=== PATIENT | male | born 1950 | race Caucasian/White ===

== ENCOUNTER → 2017-05-19 | Day surgery (SDC) | payer OTHER ==
[2017-05-16 12:03] VITALS: BMI 34.9
[~2017-05-19] MED LIST: ALPRAZolam 0.25 MG TAB PO PRN; ALPRAZolam 0.5 MG TAB PO PRN; ASPIRIN 325 MG TAB PO STA; NITROGLYCERIN SL TABS 0.4 MG TAB SUBLINGUAL PRN; SODIUM CHLORIDE 0.9% 1,000 ML in EMPTY BAG 1 BAG IV ONE
[2017-05-19 09:43] VITALS: BP 143/82; PULSE 92; RESP 16; TEMP 98.2
== END ==
LOC: CATHCVL 09:13
PROVIDERS: ATTEND Internal Medicine Interventional Cardiology
DX: B20 Human immunodeficiency virus [HIV] disease (principal)

== ENCOUNTER → 2023-03-31 | Outpatient (CLI) | payer MEDICARE, OTHER ==
[2023-03-31 10:42] LABS: ALT 20 U/L (4-49); AST 34 U/L (17-59); African American GFR (CKD) >90 (>60 ml/min/1.73 sqM); Albumin 3.9 g/dL (3.5-5.0); Anion Gap 11 mmol/L; Blood Urea Nitrogen 16 mg/dL (9-20); Carbon Dioxide 27 mmol/L (22-30); Chloride 99 mmol/L (98-107); Glucose 253 mg/dL (74-99); Non-African American GFR(CKD) >90 (>60 ml/min/1.73 sqM); Phosphorus 3.9 mg/dL (2.5-4.5); Potassium 4.4 mmol/L (3.5-5.1); Sodium 137 mmol/L (137-145)
[2023-03-31 10:53] LABS: NT-Pro-B-Type Natriuretic Pept 449 pg/mL
[2023-03-31 16:57] LABS: HCT 39.2 % (39.6-50.0); HGB 11.7 d/dL (13.0-17.0); MCH 22.8 pg (27.0-32.0); MCHC 29.8 d/dL (32.0-37.0); MCV 76.4 FL (80.0-97.0); NRBC Per 100 WBC 0 X 10*3/uL (0.00-0.01); Platelet Count 127 X 10*3/uL (140-440); RBC 5.13 X 10*6/uL (4.40-5.60); RDW 18.8 % (11.5-14.5); WBC 4.27 X 10*3/uL (4.50-10.00)
== END | disposition home or self-care (01) ==
LOC: LABWHC1 09:12
PROVIDERS: ATTEND Internal Medicine
DX: I50.9 Heart failure, unspecified (principal); K72.90 Hepatic failure, unspecified without coma; R06.02 Shortness of breath
CPT/HCPCS: 36415; 80069; 82247; 83880; 84450; 84460; 85027

== ENCOUNTER 2023-04-03 09:18 | Day surgery (SDC) | payer MEDICARE, OTHER ==
[~2023-04-03 09:18] MED LIST changes: +ATORVASTATIN 80 MG TAB PO STA; +HEPARIN SODIUM,PORCINE (1 ML) 2,500 UNIT in SODIUM CHLORIDE 0.9% 250 ML IRRIGATION PRN; +HEPARIN SODIUM,PORCINE 10,000 UNIT in SODIUM CHLORIDE 0.9% 1,000 ML IRRIGATION PRN; -SODIUM CHLORIDE 0.9% 1,000 ML in EMPTY BAG 1 BAG IV ONE; +SODIUM CHLORIDE 0.9% 1,000 ML in EMPTY BAG 1 BAG IV SCH
[2023-04-03 09:46] LABS: Glucose,Whole Blood 146 mg/dL (70-110)
[2023-04-03 09:49] VITALS: RESP 18
[2023-04-03] MEDS: BENZOCAINE SPRAY 1 CAN MUCOUS MEM ONE ×2 (10:30→10:37)
[2023-04-03] MEDS ORDERED: HEPARIN SODIUM 1,000 UN/ML (10ML VL) ONE (10:33)
[2023-04-03] MEDS ORDERED: VERAPAMIL 2.5 MG/ML 2 ML AMP ONE (10:33)
[2023-04-03] MEDS ORDERED: fentaNYL (PF) 50 MCG/ML 2 ML AMP ONE (10:33)
[2023-04-03] MEDS ORDERED: LIDOCAINE 1% INJ 10MG/ML (20 ML MDV) ONE (10:33)
[2023-04-03] MEDS: fentaNYL (PF) 50 MCG/1 ML VIAL IVP ONE ×2 (10:37→10:39)
[2023-04-03] MEDS ORDERED: MIDAZOLAM 2 MG/2 ML VIAL IVP ONE (10:37)
[2023-04-03] MEDS ORDERED: IV FLUID CONTINUATION 1,000 ML IV ONE (10:39)
[2023-04-03] MEDS: MIDAZOLAM 2 MG/2 ML VIAL IVP ONE ×3 (10:39→10:48)
[2023-04-03] MEDS ORDERED: LIDOCAINE 1% INJ 10MG/ML (20 ML MDV) SQ ONE (11:03)
[2023-04-03] MEDS ORDERED: VERAPAMIL SYRINGE (5 MG/10 ML) INTRAARTER ONE (11:05)
[2023-04-03] MEDS ORDERED: HEPARIN SODIUM 1,000 UN/ML (10ML VL) IV ONE (11:28)
[2023-04-03 11:36] LABS: O2 Sat Blood Gas 59.6 %
[2023-04-03 11:38] LABS: O2 Sat Blood Gas 54.2 %
[2023-04-03 11:40] LABS: O2 Sat Blood Gas 65.6 %
[2023-04-03 11:41] LABS: O2 Sat Blood Gas 60.6 %
[2023-04-03 11:42] LABS: O2 Sat Blood Gas 54.1 %
[2023-04-03] MEDS ORDERED: IOPAMIDOL-370 100ML BTL INJ ONE ×3 (11:46)
[2023-04-03 11:48] LABS: O2 Sat Blood Gas 83.3 %
[2023-04-03] MEDS ORDERED: MORPHINE SULFATE ER 30 MG TABLET PO STA (14:05)
[2023-04-03 15:45] VITALS: BP 140/84; PULSE 64
--- NOTE | 2023-04-03 22:23 | P.CARDCATH ---
Description of Procedure: PROCEDURES PERFORMED: Left and right heart catheterization, bilateral coronary angiography, ultrasound guided access INDICATION: Pulmonary hypertension, increasing dyspnea on exertion concerning for unstable angina, systolic murmur concerning for shunt CONSENT:I have discussed the risks, benefits and alternative therapies for the a jace-mentioned procedure and for both sedation/analgesia as well as necessary blood product administration, if indicated, as they pertain to this patient. The patient has indicated understanding and acceptance of the risks and procedures discussed. PROCEDURE: After the risks, benefits and alternatives of the above mentioned procedure explained in detail with the patient, informed consent was obtained. Patient was taken to the catheterization lab and prepped and draped in usual fashion. Ultrasound guidance was used to assess for arterial access. 1% lidocaine was used to anesthetize the right radial artery and right brachial area. A 6-Scottish sheath was placed in the right radial artery and right brachial vein using modified Seldinger technique and ultrasound guidance. A 6Fr Maple Yonny catheter was inserted into the RA, RV, PA, right and left PA and PCWP positions and pressure and oxygen saturation were performed. Thermodilution was performed. The Maple Yonny catheter was then removed. Left coronary angiography was performed with a 5-Scottish JL 3.5 catheter and right coronary angiography was performed with a 5-Scottish JR5 catheter in various views. A 5-Scottish FR5 catheter was inserted into the left ventricle and pressure measurements were obtained. There was concern of turbulent blood flow in the pulmonary artery and murmur with possible PDA and therefore descending aortogram was performed which did not show any significant shunt. The right radial sheath was removed and a TR band was placed and the right brachial sheath was removed and pressure held with hemostasis achieved. The patient tolerated the procedure well. Patient was transported back to the post catheterization holding area in stable condition. Conscious Sedation: Patient was monitored under the direct supervision of myself for conscious sedation using Versed and fentanyl for a total duration of 51 minutes HEMODYNAMICS: Aorta: 129/59 LV: 116/7, LVEDP 14 PCWP: 15 PA: 77/35 RV: 86/7 RA: 25/18 Right PA oxygen saturation: 60.6% Left PA oxygen saturation: 65.6% Main PA oxygen saturation: 54.1% RV oxygen saturation: 54.2% RA oxygen saturation: 59.6% CO by CALVIN: 9.3 L/min CI by CALVIN: 4.2 L/min/m2 CO by thermodilution: 7.26L/min CI by thermodilution: 3.3 L/min/m2 SELECTIVE CORONARY ARTERIOGRAPHY: LEFT MAIN: The left main is a large caliber vessel which bifurcates into the LAD and circumflex. There is no significant stenosis. LEFT ANTERIOR DESCENDING CORONARY ARTERY: LAD is a large caliber vessel which stops short of the apex. There is no significant stenosis. LEFT CIRCUMFLEX CORONARY ARTERY: Left circumflex is a moderate caliber vessel without significant stenosis. RIGHT CORONARY ARTERY: The right coronary artery is a large caliber vessel which gives off a PDA and PLV branch and is the dominant vessel. There is no significant stenosis. The PDA supplies the apex. Descending aortic angiogram: No stenosis, no PDA noted, no aneurysm. FINAL IMPRESSION: 1. Normal coronary arteries 2. Normal left sided filling pressures 3. Precapillary pulmonary hypertension 4. Oxygen saturation step up from RV/main PA to left pumonary artery consistent with AV shunt 5. Significant systolic murmur not explained by valvular disease concerning for AV shunt 6. No obvious PDA or shunt from descending aorta on aortogram PLAN: 1. Aggressive risk factor modification per most recent ACC/AHA guidelines. 2. Obtain prior CT chest images from [facility] to visualize any shunt however if not any significant source likely repeat CTA or cardiac MRI.
--- NOTE | 2023-04-03 22:43 | P.TEE ---
Description of Procedure(s): Procedure performed: Transesophageal Echocardiogram with color flow doppler, pulsed wave doppler and continuous wave doppler, moderate conscious sedation Moderate conscious sedation: Moderate conscious sedation was supplied with direct supervision by myself for a total of 15 minutes Complications: none Indications: Pulmonary hypertension, systolic murmur not explained by valvular disease PROCEDURE: After the risks, benefits and alternatives of the above mentioned procedure was explained in detail with the patient, informed consent was obtained. Patient was brought to the lab in a fasting state. Patient was given sedation with versed and fentanyl. The throat was sprayed with Hurricane to anesthetize the throat. A lubricated Omni probe was then introduced into the esophagus and stomach and multiple views were obtained. 2D echo with color flow doppler, pulsed wave doppler and continuous wave doppler was utilized. Agitated saline bubbles were injected to assess for any intra-atrial shunt. The probe was then removed. Patient tolerated the procedure well. Patient was transferred to the post procedure area in stable and satisfactory condition. FINDINGS: 1. The aortic valve is tricuspid with normal function. 2. The mitral valve appears be normal with mild mitral regurgitation. 3. Tricuspid valve to be normal. 4. The interatrial septum is intact. No evidence of PFO. 5. Left atrial appendage has no thrombus 6. Left ventriclular function is normal with LV EF 55% 7. Severly dilated pulmonary artery at 5.3cm 8. Possible turbulent flow noted in pulmonary artery consistent with shunt. Consider CTA, cardiac MRI or intracardiac echo if clinically indicated.
== END 2023-04-03 16:02 | disposition home or self-care (01) ==
LOC: CATHCVL 09:18
PROVIDERS: ATTEND Internal Medicine
DX: I35.0 Nonrheumatic aortic (valve) stenosis (principal); I27.20 Pulmonary hypertension, unspecified; E78.5 Hyperlipidemia, unspecified; D50.9 Iron deficiency anemia, unspecified; E11.9 Type 2 diabetes mellitus without complications; I11.0 Hypertensive heart disease with heart failure; I50.9 Heart failure, unspecified; K76.9 Liver disease, unspecified; Z79.84 Long term (current) use of oral hypoglycemic drugs; Z79.899 Other long term (current) drug therapy
CPT/HCPCS: 93312; 93320; 93325; 93460; 93567; 76937; 85018; 82810; 99152; C1769; C1894; C1751; J2250; J2001; J1644; Q9967; J3010